=== PATIENT | female | born 1995 | race Caucasian/White ===

== ENCOUNTER → 2022-04-29 | Outpatient (CLI) | payer BC ==
--- NOTE | 2022-04-29 16:25 | Diagnostic Imaging Report ---
INDICATION: Routine care TECHNIQUE: Multiple real-time grayscale images were obtained over the gravid uterus. COMPARISON: None FINDINGS: [place] intrauterine fetus is in transverse presentation. Amniotic fluid level is normal. Placenta is posterior without evidence of previa. cardiac activity is present with a rate of 146 bpm. There is no evidence of anatomic abnormality. Note is made of probable 1.8 cm fibroid in the anterior maternal uterus. No maternal adnexal region abnormality is seen. biometry indicates gestational age of 19 weeks and 5 days. IMPRESSION: Unremarkable obstetric ultrasound with a gestational age of 19 weeks and 5 days. Sonographic EDC is 09/18/2022. Biometrical measurements are as follows: Biparietal 4.50 cm, age 19 weeks 5 days. Head circumference 16.39 cm, age 19 weeks 1 days. Abdominal circumference 14.77 cm, age 20 weeks 1 days. Femur length 3.10 cm, age 19 weeks 5 days. Sonographic estimate age: 19 weeks 5 days. Sonographic estimated date of delivery: 09/18/2022. Estimated Weight: 312 gm (+/- 46 gm). LMP percentile: 33%. heart rate: 146 beats per minute. number: 1 of 1. IMPRESSION: Dictated by: Dictated on workstation # [id number]
== END ==
LOC: RAD 15:15
PROVIDERS: ATTEND Nurse Practitioner Women's Health
DX: Z34.02 Encounter for supervision of normal first pregnancy, second trimester (principal); Z3A.19 19 weeks gestation of pregnancy
CPT/HCPCS: 76805

== ENCOUNTER 2022-09-11 20:54 | Inpatient (IN) | payer BC ==
[~2022-09-11] VITALS: Ht 160 cm; Wt 91.9 kg
[2022-09-11 21:16] VITALS: BP 134/87
[2022-09-11 21:29] LABS: BILIRUBIN,URINE NEGATIVE (NEGATIVE); CLARITY,URINE CLEAR; COLOR,URINE YELLOW; GLUCOSE, URINE (UA) TRACE (NEGATIVE); KETONES,URINE NEGATIVE (NEGATIVE); LEUKOCYTE ESTERASE ,URINE TRACE (NEGATIVE); NITRITE,URINE NEGATIVE (NEGATIVE); PROTEIN,URINE NEGATIVE (NEGATIVE)
[2022-09-11 21:37] LABS: BACTERIA,URINE FEW /HPF
[2022-09-11] MEDS ORDERED: D5 LR IV SOLUTION 1,000 ML IV ONE (23:13)
[2022-09-11] MEDS ORDERED: MINERAL OIL 30 ML UDC TOP PRN (23:15)
[2022-09-11] MEDS ORDERED: HYDROmorphone 2 MG/ML VIAL (DILAUDID) IV PRN (23:15)
[2022-09-11] MEDS: D5 LR IV SOLUTION 1,000 ML IV SCH (23:32)
[2022-09-11 23:45] VITALS: BP 135/77
[2022-09-11 23:45] LABS: BASOPHILS # (AUTO) 0.1 10^3/uL (0.0-0.1); BASOPHILS % (AUTO) 0 % (0-10); EOSINOPHILS # (AUTO) 0.3 10^3/uL (0.0-0.3); EOSINOPHILS % (AUTO) 2 % (0-10); HEMATOCRIT 39 % (35-52); HEMOGLOBIN 13.8 g/dL (11.5-16.0); LYMPHOCYTES # (AUTO) 1.7 10^3/uL (1.0-4.0); LYMPHOCYTES % (AUTO) 12 % (12-44); MEAN CORPUSCULAR HEMOGLOBIN 31 pg (25-34); MEAN CORPUSCULAR HGB CONC 35 g/dL (32-36); MEAN CORPUSCULAR VOLUME 89 fL (80-99); MEAN PLATELET VOLUME 9.8 fL (9.0-12.2); MONOCYTES % (AUTO) 7 % (0-12); NEUTROPHILS # (AUTO) 10.9 10^3/uL (1.8-7.8); NEUTROPHILS % (AUTO) 78 % (42-75); PLATELET COUNT 193 10^3/uL (130-400)
[2022-09-12] VITALS (43 sets, daily range): BP systolic 107–158; BP diastolic 53–89
[2022-09-12] MEDS ORDERED: LIDOCAINE/EPI 2% 1:200,00 (XYLOCAINE) 20 ML VIAL ONE ×2 (02:46→07:28)
[2022-09-12] MEDS ORDERED: fentaNYL 2 mcg/ml BUPIVA 0.125 100 ML ONE (02:46)
[2022-09-12] MEDS ORDERED: fentaNYL INJ 100 MCG/2 ML AMP ONE (03:59)
[2022-09-12] MEDS ORDERED: ONDANSETRON 4 MG/2 ML (SDV) Z0FRAN IV PRN (04:15)
[2022-09-12] MEDS ORDERED: LACTATED RINGERS 1,000 ML IV ONE (04:15)
[2022-09-12] MEDS ORDERED: fentaNYL 2 mcg/ml BUPIVA 0.125 100 ML IV SCH (04:15)
[2022-09-12] MEDS ORDERED: CATHETER FLUSH 10 ML SYR IV PRN (04:15)
[2022-09-12] MEDS ORDERED: NALOXONE 0.4 MG/ML 1 ML (NARCAN) VIAL IV PRN ×2 (04:15→09:15)
[2022-09-12] MEDS: D5 LR IV SOLUTION 1,000 ML IV SCH (05:52)
[2022-09-12] MEDS ORDERED: CATHETER FLUSH 10 ML SYR IV SCH ×2 (06:00→14:00)
--- NOTE | 2022-09-12 07:59 | History & Physical-OB ---
OB - Chief Complaint & HPI Date/Time Date of Admission: Date of Admission: Sep 11, 2022 at 22:58 Date seen by a Provider: Sep 12, 2022 Time Seen by a Provider: 07:57 Chief Complaint/History OB-Reason for Admission/Chief: Onset of Labor Hx : 1 Hx Para: 0 Expected Date of Delivery: Sep 16, 2022 Gestational Age in Weeks: 39 Gestational Age in Days: 2 Admission Nurse Assessment Rev: Yes History of Labs B neg Antibody neg RI RPR NR HBsAg NR HIV NR GC neg GBS neg Allergies and Home Medications Allergies Coded Allergies: No Known Drug Allergies (Unverified , 09/11/22) Patient Home Medication List Home Medication List Reviewed: Yes OB - History Hx of Present Care: Yes Ultrasounds: Normal mid trimester US Obstetrical Complications: None Medical Complications: None Obstetrical History Hx : 1 Hx Para: 0 Hx Total # of Abortions (Spona: 0 Patient Past Medical History nc Social History/Family History Alcohol Use: Denies Use Recreational Drug Use: No 2nd Hand Smoke Exposure: No Immunizations Influenza Vaccine Up-to-Date: No; Not Current Hepatitis A: No Hepatitis B: No OB - Admission Exam Physical Exam Vitals: Vital Signs 09/12/22 09/12/22 06:05 06:53 Temp 36.8 Pulse 130 Resp 20 B/P (MAP) 143/78 (99) Pulse Ox 100 O2 Delivery Room Air HEENT: NCAT Heart: Rhythm Normal Lungs: Clear Abdomen: Gravid Extremities: Normal Reflexes: Normal Cervical Dilatation: 4cm Effacement: 75% Station: -1 Membranes: Intact Heart Rate: 130's Accelerations: Accelerations Present Decelerations: No Decelerations Short Term Variability: Present Postal Inspector Variability: Average (6-25) Contractions on Admission: 6-10 Minutes Apart Intensity: Mild Labs Laboratory Tests Test 09/11/22 21:15 09/11/22 23:29 Range/Units Urine Color YELLOW Urine Clarity CLEAR Urine pH 7.0 5-9 Urine Specific [place] <=1.005 1.016-1.022 Urine Protein NEGATIVE NEGATIVE Urine Glucose (UA) TRACE H NEGATIVE Urine Ketones NEGATIVE NEGATIVE Urine Nitrite NEGATIVE NEGATIVE Urine Bilirubin NEGATIVE NEGATIVE Urine Urobilinogen 0.2 < = 1.0 MG/DL Urine Leukocyte Esterase TRACE H NEGATIVE Urine RBC (Auto) 1+ H NEGATIVE Urine RBC NONE /HPF Urine WBC 2-5 /HPF Urine Squamous Epithelial Cells 2-5 /HPF Urine Crystals NONE /LPF Urine Bacteria FEW H /HPF Urine Casts NONE /LPF Urine Mucus NEGATIVE /LPF Urine Culture Indicated YES White Blood Count 14.0 H 4.3-11.0 10^3/uL Red Blood Count 4.40 3.80-5.11 10^6/uL Hemoglobin 13.8 11.5-16.0 g/dL Hematocrit 39 35-52 % Mean Corpuscular Volume 89 80-99 fL Mean Corpuscular Hemoglobin 31 25-34 pg Mean Corpuscular Hemoglobin Concent 35 32-36 g/dL Red Cell Distribution Width 14.0 10.0-14.5 % Platelet Count 193 130-400 10^3/uL Mean Platelet Volume 9.8 9.0-12.2 fL Immature Granulocyte % (Auto) 1 % Neutrophils (%) (Auto) 78 H 42-75 % Lymphocytes (%) (Auto) 12 12-44 % Monocytes (%) (Auto) 7 0-12 % Eosinophils (%) (Auto) 2 0-10 % Basophils (%) (Auto) 0 0-10 % Neutrophils # (Auto) 10.9 H 1.8-7.8 10^3/uL Lymphocytes # (Auto) 1.7 1.0-4.0 10^3/uL Monocytes # (Auto) 1.0 0.0-1.0 10^3/uL Eosinophils # (Auto) 0.3 0.0-0.3 10^3/uL Basophils # (Auto) 0.1 0.0-0.1 10^3/uL Immature Granulocyte # (Auto) 0.1 0.0-0.1 10^3/uL Syphilis Total Antibody Negative Negative OB - Assessment/Plan/Diagnosis Assessment Assessment: active labor Admission Dx 27 yo G1 @ 39 weeks Active labor GBS neg Admission Status: Inpatient Order (span 2 midnights) Reason for Inpatient Admission: Active labor Plan Plan: Expectant Management INGRID LAWRENCE DO Sep 12, 2022 07:59
[2022-09-12] MEDS: OXYTOCIN PRE-MIX DRIP 500 ML IV ONE ×2 (08:51→08:57)
[2022-09-12] MEDS ORDERED: LIDOCAINE/EPI 2% 1:200,00 (XYLOCAINE) 10 ML VIAL INJ PRN (08:55)
--- NOTE | 2022-09-12 09:11 | OB Labor & Delivery Record ---
L&D History Date of Service Date of Service: Sep 12, 2022 History Expected Date of Delivery: Sep 16, 2022 Gestational Age in Weeks: 39 Hx : 1 Hx Para: 0 Complications Events: Routine care Operative Indications (Cesarea: N/A-Vaginal Delivery Intrapartal Events: None L&D Stage1 Stage One Onset of Labor - Date: Sep 12, 2022 Monitors and Tracing Monitor Mode: External Heart Rate: 155 Monitor Decelerations: None Station: 0 Parcel Post Officer Variability: Average (6-10) Short Term Variability: Present Presentation: Vertex Vital Signs VS - Last 72 Hours, by Label 09/11/22 09/11/22 09/12/22 09/12/22 21:16 23:45 01:30 03:44 Temp 37.0 36.8 36.9 Pulse 105 96 114 Resp 18 18 22 B/P (MAP) 134/87 135/77 (96) 138/81 (100) Pulse Ox 97 98 O2 Delivery Room Air Room Air Room Air 09/12/22 09/12/22 09/12/22 09/12/22 03:52 03:56 03:59 04:02 Pulse 126 121 109 125 Resp 20 20 20 16 B/P (MAP) 150/81 (104) 144/81 (102) 126/62 (83) 134/67 (89) Pulse Ox 98 97 98 99 O2 Delivery Room Air Room Air Room Air Room Air 09/12/22 09/12/22 09/12/22 09/12/22 04:05 04:08 04:11 04:14 Temp 36.7 Pulse 109 114 110 100 Resp 18 18 20 18 B/P (MAP) 126/60 (82) 124/63 (83) 136/66 (89) 130/68 (88) Pulse Ox 99 99 97 97 O2 Delivery Room Air Room Air Room Air Room Air 09/12/22 09/12/22 09/12/22 09/12/22 04:17 04:20 04:25 04:30 Pulse 109 106 95 91 Resp 18 18 18 14 B/P (MAP) 130/68 (88) 129/68 (88) 135/74 (94) 134/71 (92) Pulse Ox 97 98 98 99 O2 Delivery Room Air Room Air Room Air Room Air 09/12/22 09/12/22 09/12/223/23 04:50 05:06 05:20 05:35 Pulse 97 85 85 88 Resp 18 18 16 16 B/P (MAP) 107/58 (74) 110/62 (78) 114/60 (78) 138/89 (105) Pulse Ox 98 98 99 100 O2 Delivery Room Air Room Air Room Air Room Air 09/12/22 09/12/22 09/12/22 09/12/22 05:50 06:05 06:22 06:36 Temp 36.8 Pulse 90 104 93 101 Resp 18 18 18 20 B/P (MAP) 135/73 (93) 141/76 (97) 157/77 (103) 153/71 (98) Pulse Ox 100 100 99 99 O2 Delivery Room Air Room Air Room Air Room Air 09/12/22 06:53 Pulse 130 Resp 20 B/P (MAP) 143/78 (99) Pulse Ox 100 O2 Delivery Room Air Rupture of Membranes Spontaneous Ruture of Membrane: No Amniotic Membrane Rupture Time: 07:45 Vaginal Bleeding Description: Normal Show Induction/Anesthesia Epidural Cath Placement - Time: 0352 Progress/Notes Patient admitted in labor 4 cm, she progressed with no augmentation to complete and +1 station after epidural was placed. SROM occurred with SVE at +1 station clear fluid noted. L&D Stage2 Stage Two Stage II Date: Sep 12, 2022 Monitors and Tracing Monitor Mode: External Heart Rate: 155 Monitor Decelerations: None Position: Right Occiput Anterior Presentation: Vertex Cord Descript/Complications Cord Vessel Description: 3 Vessels Complications nuchal cord x 1 reduced at perineum Delivery Type Delivery Method: Spontaneous Vaginal Anterior Shoulder: Right Episiotomy/Perineal Laceration Laceraction(s)/Extensions: Yes Episiotomy Description: Perineal Extension/lac, 2nd degree Degree (describe repair) Repaired using 3-0 rapide and 2-0 vicryl suture Condition of Delivery 1 minute Comment: 9 5 minute Comment: 9 Notes Live female infant weight 6lbs 13 oz, Condition of Infant Condition of : Living Exam: No Observed Abnormalities Resuscitation Resuscitation: N/A - Spontaneous Resp L&D Stage3 Stage Three Stage III Date: Sep 12, 2022 Pictocin Pitocin Administration Comment: 30 mu wide open after delivery of placenta Placenta Delivery Placenta Delivery: Spontaneous Delivery Summary Summary Estimated blood loss (mL): 350 Attending at delivery: Ingrid Lawrence DO Condition of Delivery Examined: Cervix Examined, Uterus Explored Post Hemorrhage: No Condition of Mother stable Condition of Infant (s) stable INGRID LAWRENCE DO Sep 12, 2022 09:11
[2022-09-12] MEDS ORDERED: BENZOCAINE/MENTHOL (DERMOPLAST) 56 ML CAN TP PRN (09:15)
[2022-09-12] MEDS ORDERED: OXYTOCIN PRE-MIX DRIP 500 ML IV SCH (09:15)
[2022-09-12] MEDS ORDERED: TETANUS,DIPTH,PERTUSS P/F (BOOSTRIX) 0.5 ML VIAL IM ONE (09:15)
[2022-09-12] MEDS ORDERED: MEASLES,MUMPS,RUBELLA 1 EA INJ SQ ONE (09:15)
[2022-09-12] MEDS ORDERED: WITCH HAZEL(TUCKS) 40 EA JAR TOP PRN (09:15)
[2022-09-12] MEDS ORDERED: DIBUCAINE 1% OINTMENT 28 GM TUBE TOP PRN (09:15)
[2022-09-12] MEDS ORDERED: OXYTOCIN PRE-MIX DRIP 500 ML IV ONE (09:25)
[2022-09-12] MEDS: IBUPROFEN 600 MG (MOTRIN) TAB PO SCH ×3 (10:01→23:25)
[2022-09-12] MEDS: ACETAMINOPHEN 500 MG TAB (TYLENOL) PO SCH ×3 (10:01→23:25)
[2022-09-12] MEDS: DOCUSATE SODIUM 100 MG (COLACE) CAP PO SCH (23:25)
--- NOTE | 2022-09-13 04:07 | Postpartum Progress Note ---
Note Note Day # 1 Subjective: Patient is without complaints. Ambulating, voiding. Tolerating a regular diet without nausea or vomiting. Normal lochia. Pain is well controlled with oral pain medications. Objective: Physical Exam: General - Alert and oriented, no apparent distress Abdomen - Soft, appropriately tender to palpation, non-distended, fundus firm at umbilicus Extremities - no edema, negative Tyler's bilaterally Assessment: PPD 1 NVD Plan: Routine care. Encourage breast feeding. Encourage ambulation. Ferrous sulfate supplementation. Plan for discharge today Vitals - Labs Vital Signs - I&O Vital Signs Date Time Temp Pulse Resp B/P (MAP) Pulse Ox O2 Delivery O2 Flow Rate FiO2 09/12/22 16:07 37.2 94 18 116/68 (84) 97 Room Air 09/12/22 14:15 36.9 89 18 111/62 (78) 97 Room Air 09/12/22 12:15 37.2 95 18 113/64 (80) Room Air 09/12/22 11:00 37.3 126 18 109/56 (73) 97 Room Air 09/12/22 10:45 131 18 108/53 (71) Room Air 09/12/22 10:30 121 18 130/62 (84) Room Air 09/12/22 10:16 37.1 118 18 132/70 (90) 97 Room Air 09/12/22 10:01 126 18 133/68 (89) Room Air 09/12/22 09:46 122 18 131/63 (85) Room Air 09/12/22 09:32 37.2 134 18 134/60 (84) Room Air 09/12/22 09:16 120 18 128/60 (82) Room Air 09/12/22 09:01 37.1 141 20 143/66 (91) Room Air 09/12/22 08:46 141 20 140/75 (96) Room Air 09/12/22 08:31 142 20 146/82 (103) 100 Room Air 09/12/22 08:16 126 20 136/82 (100) 100 Room Air 09/12/22 08:09 122 20 156/81 (106) Room Air 09/12/22 07:54 120 20 158/86 (110) Room Air 09/12/22 07:38 37.0 148 20 146/74 (98) Room Air 09/12/22 07:23 133 20 145/78 (100) 100 Room Air 09/12/22 07:10 134 20 148/79 (102) 100 Room Air 09/12/22 06:53 130 20 143/78 (99) 100 Room Air 09/12/22 06:36 101 20 153/71 (98) 99 Room Air 09/12/22 06:22 93 18 157/77 (103) 99 Room Air 09/12/22 06:05 36.8 104 18 141/76 (97) 100 Room Air 09/12/22 05:50 90 18 135/73 (93) 100 Room Air 09/12/22 05:35 88 16 138/89 (105) 100 Room Air 09/12/22 05:20 85 16 114/60 (78) 99 Room Air 09/12/22 05:06 85 18 110/62 (78) 98 Room Air 09/12/22 04:50 97 18 107/58 (74) 98 Room Air 09/12/22 04:30 91 14 134/71 (92) 99 Room Air 09/12/22 04:25 95 18 135/74 (94) 98 Room Air 09/12/22 04:20 106 18 129/68 (88) 98 Room Air 09/12/22 04:17 109 18 130/68 (88) 97 Room Air 09/12/22 04:14 100 18 130/68 (88) 97 Room Air 09/12/22 04:11 110 20 136/66 (89) 97 Room Air 09/12/22 04:08 36.7 114 18 124/63 (83) 99 Room Air I & O 09/13/22 07:00 Intake Total 1400 ml Output Total 600 ml Balance 800 ml Labs Microbiology 09/11/22 Urine Culture - Preliminary, Resulted Mixed Bacterial Leola INGRID LAWRENCE DO Sep 13, 2022 04:07
--- NOTE | 2022-09-13 04:08 | Discharge Inst-Women's Service ---
Discharge Inst-Women's Serv Depart Medication/Instructions New, Converted or Re-Newed RX: Transmitted to Pharmacy Final Diagnosis PPD 1 NVD Problems Reviewed?: Yes Consults/Follow Up Additional Follow Up: Yes Orders/Referrals Dr. Lawrence in 6 weeks Activity Activity: Activity as Tolerated Driving Instructions: No Driving for 1 Week NO SMOKING: NO SMOKING Nothing Inside Vagina: No Douching, No Starks, No Tampons Diet Discharge Diet: No Restrictions Symptoms to Report to : Bleeding Excessive, Pain Increased, Fever Over 101 Degrees F, Vaginal Bleeding Increase, Questions/Concerns For Any Problems or Questions: Contact Your Physician INGRID LAWRENCE DO Sep 13, 2022 04:08
[2022-09-13] MEDS ORDERED: DOCU100C37 PO (04:09)
[2022-09-13] MEDS ORDERED: ACET-93 PO (04:09)
[2022-09-13] MEDS ORDERED: IBUP-844 PO (04:09)
[2022-09-13] MEDS ORDERED: DIBU30OI TOP (04:09)
[2022-09-13] MEDS ORDERED: PNV1TABL67 PO (04:09)
[2022-09-13] MEDS ORDERED: FERR325T24 PO (04:09)
[2022-09-13] MEDS ORDERED: BENZ78AE5 TP (04:09)
[2022-09-13 04:30] VITALS: BP 114/68
[2022-09-13 06:37] LABS: BASOPHILS # (AUTO) 0.1 10^3/uL (0.0-0.1); BASOPHILS % (AUTO) 0 % (0-10); EOSINOPHILS # (AUTO) 0.3 10^3/uL (0.0-0.3); EOSINOPHILS % (AUTO) 2 % (0-10); HEMATOCRIT 33 % (35-52); LYMPHOCYTES # (AUTO) 2.2 10^3/uL (1.0-4.0); LYMPHOCYTES % (AUTO) 13 % (12-44); MEAN CORPUSCULAR HEMOGLOBIN 31 pg (25-34); MEAN CORPUSCULAR HGB CONC 34 g/dL (32-36); MEAN CORPUSCULAR VOLUME 92 fL (80-99); MEAN PLATELET VOLUME 9.8 fL (9.0-12.2); MONOCYTES # (AUTO) 1.3 10^3/uL (0.0-1.0); MONOCYTES % (AUTO) 8 % (0-12); NEUTROPHILS # (AUTO) 13.1 10^3/uL (1.8-7.8); NEUTROPHILS % (AUTO) 76 % (42-75); PLATELET COUNT 152 10^3/uL (130-400); WHITE BLOOD COUNT 17.1 10^3/uL (4.3-11.0)
[2022-09-13] MEDS: IBUPROFEN 600 MG (MOTRIN) TAB PO SCH ×3 (06:40→12:26)
[2022-09-13] MEDS: ACETAMINOPHEN 500 MG TAB (TYLENOL) PO SCH ×3 (06:40→12:26)
[2022-09-13] MEDS ORDERED: PRENATAL VITAMIN 1 EA TAB PO SCH (07:00)
[2022-09-13 08:15] VITALS: BP 106/58
[2022-09-13] MEDS: DOCUSATE SODIUM 100 MG (COLACE) CAP PO SCH (08:31)
[2022-09-13] MEDS ORDERED: FERROUS SULF 325 MG (IRON) TAB PO SCH (09:00)
[2022-09-13] MEDS ORDERED: RHO(D) IMMUNE GLOBULIN 300 MCG/2 ML SYRINGE IM/IV ONE (09:30)
[2022-09-13 11:40] VITALS: BP 116/82
--- NOTE | 2022-09-13 11:54 | Anesthesia-Regional Post-Op ---
Regional Patient Condition Mental Status: Alert, Oriented x3 Circulation: Same as Pre-Op Headache: Absent Sensation: Full Recovery Motor Block: Absent Post Op Complications Complications None Follow Up Care/Instructions Patient Instructions None needed. Anesthesia/Patient Condition Patient is doing well, no complaints, stable vital signs, no apparent adverse anesthesia problems. No complications reported per nursing. JOE NGUYEN CRNA Sep 13, 2022 11:54
[2022-09-13 13:30] VITALS: BP 116/82
== END 2022-09-13 13:30 | disposition home or self-care (01) | DRG 807 ==
LOC: WSo 20:54 → LDRP 20:54 → WSo 22:57 → LDRP 22:58
PROVIDERS: ADMIT Obstetrics & Gynecology; ATTEND Obstetrics & Gynecology
PROC: 10E0XZZ Delivery of Products of Conception, External Approach (ICD-10-PCS; principal; 2022-09-12)
PROC: 0KQM0ZZ Repair Perineum Muscle, Open Approach (ICD-10-PCS; 2022-09-12)
PROC: 0W8NXZZ Division of Female Perineum, External Approach (ICD-10-PCS; 2022-09-12)
DX: O70.1 Second degree perineal laceration during delivery (principal); Z37.0 Single live birth; Z3A.39 39 weeks gestation of pregnancy; O69.81X0 Labor and delivery complicated by cord around neck, without compression, not applicable or unspecified
CPT/HCPCS: 36415; 81000; 83033; 85025; 86780; 86850; 86900; 86901; 87088; 99213